=== PATIENT | female | born 1995 | race Caucasian/White ===

== ENCOUNTER 2022-04-14 19:35 | Emergency (ER) | payer SELFPAY ==
[~2022-04-14] VITALS: Ht 170.2 cm; Wt 93.7 kg
[2022-04-14 20:34] VITALS: BP 122/69
[2022-04-14] MEDS ORDERED: DIPHENHYDRAMINE 25MG CAPSULE PO ONE (20:45)
== END 2022-04-14 21:32 | disposition home or self-care (01) ==
LOC: ER 19:35
DX: S70.361A Insect bite (nonvenomous), right thigh, initial encounter (principal); F17.290 Nicotine dependence, other tobacco product, uncomplicated; F12.10 Cannabis abuse, uncomplicated; Z90.49 Acquired absence of other specified parts of digestive tract; Z98.890 Other specified postprocedural states; W57.XXXA Bitten or stung by nonvenomous insect and other nonvenomous arthropods, initial encounter; Y93.89 Activity, other specified; Y92.89 Other specified places as the place of occurrence of the external cause; Y99.8 Other external cause status
CPT/HCPCS: 99282; 99406; Q0163

== ENCOUNTER 2022-04-17 07:13 | Emergency (ER) | payer MEDICAID ==
[~2022-04-17] VITALS: Ht 170.2 cm; Wt 94.0 kg
[2022-04-17] MEDS ORDERED: SERT25TA PO (07:44)
[2022-04-17] MEDS ORDERED: ACETAMINOPHEN 325MG TABLET PO ONE (08:15)
[2022-04-17] MEDS ORDERED: METHOCARBAMOL 500MG TABLET PO ONE (08:15)
[2022-04-17] MEDS ORDERED: TOPUD PO (10:40)
[2022-04-17] MEDS ORDERED: KETOROLAC 30MG/ML VIAL IM ONE (10:45)
[2022-04-17 10:57] VITALS: BP 141/96
== END 2022-04-17 11:36 | disposition home or self-care (01) ==
LOC: ER 07:13
DX: R51.9 Headache, unspecified (principal); Z98.890 Other specified postprocedural states; Z90.49 Acquired absence of other specified parts of digestive tract; Y04.0XXA Assault by unarmed brawl or fight, initial encounter; Y93.89 Activity, other specified; Y92.89 Other specified places as the place of occurrence of the external cause; Y99.8 Other external cause status
CPT/HCPCS: 81025; 96372; 99283; J1885

== ENCOUNTER 2022-06-25 13:59 | Emergency (ER) | payer MEDICAID ==
[~2022-06-25] VITALS: Ht 170.2 cm; Wt 95.0 kg
[~2022-06-25 13:59] MED LIST: SERT25TA PO; TOPUD PO
[2022-06-25 17:56] LABS: BASOPHILS % 0.8 % (0.0-2.0); EOSINOPHILS % 1.9 % (0.0-5.0); HEMATOCRIT. 34.8 % (36.0-48.0); HEMOGLOBIN. 11.7 g/dL (12.0-16.0); LYMPHOCYTES % 19.5 % (20.0-50.0); MEAN CORPUSCULAR HEMOGLOBIN 32.1 pg (28.0-32.0); MEAN PLATELET VOLUME 7.5 fl (7.4-10.4); MONOCYTES % 7.4 % (2.0-8.0); NEUTROPHILS % 70.4 % (40.0-76.0); PLATELET 442 x1000/uL (130-400); RED BLOOD CELL COUNT 3.63 mill/uL (4.2-5.4); RED CELL DISTRIBUTION WIDTH 12.9 % (11.6-14.6)
[2022-06-25 18:05] LABS: CHLORIDE 106 mEq/L (98-107)
[2022-06-25 18:06] LABS: HCG SCREEN NEGATIVE
[2022-06-25] MEDS ORDERED: SENN-178 MT (18:26)
[2022-06-25] MEDS ORDERED: FEO RC (18:26)
[2022-06-25] MEDS ORDERED: DOCU-138 MT (18:27)
[2022-06-25 19:16] VITALS: BP 136/75
== END 2022-06-25 19:18 | disposition home or self-care (01) ==
LOC: ER 13:59
DX: K59.00 Constipation, unspecified (principal); F32.9 Major depressive disorder, single episode, unspecified; Z90.49 Acquired absence of other specified parts of digestive tract; Z98.890 Other specified postprocedural states
CPT/HCPCS: 36415; 80053; 84703; 85025; 99283